=== PATIENT | male | born 1955 | race Two or more races ===

== ENCOUNTER → 2025-06-10 | Outpatient (CLI) | payer MEDICARE, SELFPAY ==
--- NOTE | 2025-06-10 11:30 | XR_ITS ---
Examination: Retroperitoneal ultrasound, complete Technique: Multiple high resolution grayscale images of the retroperitoneum obtained, including kidneys and bladder. Exam date and time: June 10, 2025, 1136 hours INDICATIONS: Elevated PSA on laboratory examination 3 months ago FINDINGS: Right kidney 11.3 cm renal cortex 2.5 cm Left kidney 11.6 cm renal cortex 2.1 cm Moderate renal scar formation 5 mm mid pole left renal calculus no hydronephrosis No bladder mass or bladder calculi Prostate 3.7 x 3.4 x 4.3 cm volume 28.4 cc no prostate nodules IMPRESSION: Moderate bilateral renal scar formation 5 mm mid pole left renal calculus No hydronephrosis
== END | disposition home or self-care (01) ==
PROVIDERS: PCP Nurse Practitioner Family; Referring Provider Nurse Practitioner Family; Visit Provider Nurse Practitioner Family
DX: N20.0 Calculus of kidney (principal); N28.89 Other specified disorders of kidney and ureter
CPT/HCPCS: 76770